=== PATIENT | female | born 1985 | race Caucasian/White ===

== ENCOUNTER 2023-08-17 07:29 | Inpatient (IN) | payer MEDICAID ==
[~2023-08-17] VITALS: Ht 154.9 cm; Wt 99.8 kg
[2023-08-17 07:33] VITALS: BP 128/50; PULSE 95; RESP 14; TEMP 97.6; O2SAT 100
[2023-08-17] MEDS ORDERED: METOCLOPRAMIDE 10 MG/2 ML INJ VIAL IVP ONE (07:40)
[2023-08-17] MEDS ORDERED: FAMOTIDINE 20 MG/2 ML VIAL IVP ONE (07:40)
[2023-08-17] MEDS ORDERED: diphenhydrAMINE 50 MG/ML VIAL IVP ONE (07:40)
[2023-08-17] MEDS ORDERED: NACL 0.9% 1,000 ML IV ONE (07:40)
[2023-08-17] MEDS ORDERED: KETOROLAC 30 MG/ML VIAL IVP ONE ×2 (07:40→11:50)
[2023-08-17 08:15] LABS: BASOPHILS % (AUTO) 0.6 % (0.0-2.0); EOSINOPHILS # (AUTO) 0.1 K/uL (0-0.4); EOSINOPHILS % (AUTO) 1.1 % (0.0-4.0); HEMATOCRIT 36.6 % (36-48); HEMOGLOBIN 11.8 g/dL (12.0-16.0); LYMPHOCYTES # (AUTO) 1.5 K/uL (2.5-16.5); LYMPHOCYTES % (AUTO) 18.3 % (20.5-51.1); MEAN CORPUSCULAR HEMOGLOBIN 27 pg (27-31); MEAN CORPUSCULAR HGB CONC 32 g/dL (33-37); MEAN CORPUSCULAR VOLUME 82.7 fL (80-94); MONOCYTES # (AUTO) 0.6 K/uL (0.8-1.0); MONOCYTES % (AUTO) 7.5 % (1.7-9.3); NEUTROPHILS % (AUTO) 72.5 % (42.2-75.2); PLATELET COUNT (AUTO) 440 K/uL (140-450); RED BLOOD CELL COUNT(AUTO) 4.42 MIL/uL (4.20-5.40); RED CELL DISTRIBUTION WIDTH 15.5 % (11.6-13.7); WHITE BLOOD COUNT (AUTO) 8.3 K/uL (4.8-10.8)
[2023-08-17 08:29] LABS: ALBUMIN 3.8 g/dL (3.4-5.0); ANION GAP 19.4 (8-16); CALCIUM 8.6 mg/dL (8.5-10.1); CREATININE 0.9 mg/dL (0.6-1.3); POTASSIUM 3.4 mmol/L (3.5-5.1); TOTAL BILIRUBIN 0.4 mg/dL (0.0-1.0); TOTAL PROTEIN, SERUM 7.8 g/dL (6.4-8.2)
[2023-08-17 09:27] LABS: BILIRUBIN,URINE 1+ (NEGATIVE); BLOOD, URINE 3+ (NEGATIVE); LEUKOCYTE ESTERASE ,URINE TRACE (NEGATIVE); NITRITE, URINE POSITIVE (NEGATIVE); PH,URINE 5.5 (5.0-9.0); PROTEIN,URINE 3+ (NEGATIVE); UGLUCOSE NEGATIVE (NEGATIVE)
[2023-08-17 09:29] LABS: APPEARANCE,URINE BLOODY (CLEAR)
[2023-08-17 09:31] LABS: COLOR,URINE SLIGHT BLOODY (YELLOW); RBC,URINE TOO NUMEROUS TO COUN /HPF (0-5)
[2023-08-17 09:32] LABS: BACTERIA,URINE 1+ /HPF (None Seen); SQUAMOUS EPITHELIAL CELL,UR 0-3 (FEW) /LPF (0-3 (FEW))
[2023-08-17 09:33] LABS: WBC,URINE 0-5 /HPF (0-5)
[2023-08-17 09:35] LABS: ICTOTEST NEGATIVE (NEGATIVE)
[2023-08-17 09:36] LABS: AMPHETAMINE, URINE NEGATIVE ng/ml (NEG <=1000); BARBITURATE, URINE NEGATIVE ng/ml (NEG <=200); BENZODIAZEPINE, URINE NEGATIVE ng/mL (NEG <=200); CANNABINOID, URINE POSITIVE ng/mL (NEG <=50); COCAINE, URINE NEGATIVE ng/mL (NEG <=300); OPIATE, URINE NEGATIVE ng/mL (NEG <=2000); PHENCYCLIDINE SCREEN,URINE NEGATIVE ng/mL (NEG <=25)
[2023-08-17] MEDS ORDERED: LORazepam 2 MG/ML VIAL IVP ONE ×2 (09:40→09:50)
[2023-08-17] MEDS ORDERED: PROCHLORPERAZINE 10 MG/2 ML VIAL IVP ONE (09:40)
[2023-08-17] MEDS ORDERED: cefTRIAXone 1,000 MG VIAL ONE (09:50)
[2023-08-17 10:13] VITALS: BP 134/81; PULSE 71; RESP 16; TEMP 98.2; O2SAT 97
[2023-08-17 11:03] LABS: INR 0.88 (0.8-1.2); PROTHROMBIN TIME 9.3 secs (10.8-13.4)
[2023-08-17] MEDS ORDERED: LIDOCAINE/EPI MPF 1%1:200000 30 ML VIAL INJ ONE (11:03)
[2023-08-17] MEDS ORDERED: BUPIVACAINE-MPF 0.25% 30 ML VIAL INJ ONE (11:03)
[2023-08-17] MEDS ORDERED: ONDANSETRON 4 MG/2 ML VIAL IVP PRN ×2 (11:40→13:05)
[2023-08-17] MEDS ORDERED: MORPHINE SULFATE 2 MG/ML SYR IVP PRN (11:40)
[2023-08-17] MEDS: NACL 0.9% 1,000 ML IV SCH ×2 (11:45→21:45)
[2023-08-17] MEDS ORDERED: SUCCINYLCHOLINE CHLORIDE 200 MG/10 ML VIAL IV ONE (11:50)
[2023-08-17] MEDS ORDERED: SEVOFLURANE 250 ML BTL INH ONE (11:50)
[2023-08-17] MEDS ORDERED: fentaNYL citrate 0.05 MG/ML VIAL ONE (11:54)
[2023-08-17] MEDS ORDERED: MIDAZOLAM 2 MG/2 ML VIAL ONE (11:54)
[2023-08-17] MEDS ORDERED: PROPOFOL 200 MG/20 ML VIAL IV ONE (12:34)
[2023-08-17] MEDS ORDERED: METOCLOPRAMIDE 10 MG/2 ML INJ VIAL ONE (12:34)
[2023-08-17] MEDS ORDERED: ONDANSETRON 4 MG/2 ML VIAL ONE (12:34)
[2023-08-17] MEDS ORDERED: GLYCOPYRROLATE 0.2 MG/ML VIAL ONE ×2 (12:35)
[2023-08-17] MEDS ORDERED: ROCURONIUM 50 MG/5 ML VIAL IV ONE (12:35)
[2023-08-17] MEDS ORDERED: NEOSTIGMINE 1:1000 10 MG/10 ML VIAL ONE (12:35)
[2023-08-17] MEDS ORDERED: GABAPENTIN 300 MG CAP PO PRN (12:45)
[2023-08-17] MEDS ORDERED: HYDROcodone/APAP 5/325 MG 1 TAB TAB PO PRN (12:45)
[2023-08-17] MEDS ORDERED: KETOROLAC 30 MG/ML VIAL IVP PRN (12:45)
[2023-08-17] MEDS ORDERED: MEPERIDINE 25 MG/ML SYR IVP PRN (13:05)
[2023-08-17] MEDS: LACTATED RINGERS 1,000 ML IV SCH ×2 (13:05→21:25)
[2023-08-17] MEDS ORDERED: diphenhydrAMINE 50 MG/ML VIAL IVP PRN (13:05)
[2023-08-17] MEDS ORDERED: CODE BLUE PARTICIPANT 1 EA MISC MC ONE (14:00)
[2023-08-17] MEDS ORDERED: ETOMIDATE 20 MG/10 ML VIAL IVP ONE (14:30)
[2023-08-17] MEDS ORDERED: ALBUTEROL 0.083% 2.5 MG/3 ML NEBU INH ONE (14:41)
[2023-08-17] MEDS ORDERED: ALBUTEROL 0.083% 2.5 MG/3 ML NEBU INH PRN (17:20)
== END 2023-08-18 00:43 | DRG 263 ==
LOC: MED 07:29 → MTU 11:41 → MMU 14:28
PROVIDERS: ADMIT Internal Medicine; ATTEND Internal Medicine
PROC: 0FT44ZZ Resection of Gallbladder, Percutaneous Endoscopic Approach (ICD-10-PCS; 2023-08-17)
PROC: 0BH17EZ Insertion of Endotracheal Airway into Trachea, Via Natural or Artificial Opening (ICD-10-PCS; 2023-08-17)
PROC: 0W9B30Z Drainage of Left Pleural Cavity with Drainage Device, Percutaneous Approach (ICD-10-PCS; principal; 2023-08-17 11:30)
DX: K80.20 Calculus of gallbladder without cholecystitis without obstruction (principal); J96.01 Acute respiratory failure with hypoxia; I46.9 Cardiac arrest, cause unspecified; F12.90 Cannabis use, unspecified, uncomplicated; F41.9 Anxiety disorder, unspecified; R73.9 Hyperglycemia, unspecified; E66.9 Obesity, unspecified; J45.909 Unspecified asthma, uncomplicated; I49.01 Ventricular fibrillation; Z88.5 Allergy status to narcotic agent; Z79.899 Other long term (current) drug therapy; Z68.41 Body mass index [BMI] 40.0-44.9, adult
CPT/HCPCS: 31500; 32551; 36415; 71045; 76705; 80053; 80305; 81001; 82948; 83690; 83735; 83880; 84484; 84703; 85025; 85379; 85610; 85730; 88304; 92950; 93005; 94640; 96361; 96374; 96375; 99285; J0330; J0696; J0780; J1200; J1885; J2001; J2060; J2250; J2405; J2704; J2710; J2765; J3010; J3490; J7613; Q0092